=== PATIENT | female | born 1930 | race Caucasian/White ===

== ENCOUNTER 2016-10-03 09:07 | Outpatient (CLI) | payer MEDICARE, OTHER ==
[2015-11-10 07:46] VITALS: BP 175/88
== END 2016-10-03 09:10 ==
LOC: LAB 09:07
PROVIDERS: ATTEND Internal Medicine
DX: Z51.81 Encounter for therapeutic drug level monitoring (principal); Z79.01 Long term (current) use of anticoagulants
CPT/HCPCS: 36415; 85610

== ENCOUNTER 2017-01-01 12:36 | Outpatient (CLI) | payer MEDICARE, OTHER ==
[2015-11-10 07:46] VITALS: BP 175/88
== END 2017-01-01 12:37 ==
LOC: LAB 12:36
PROVIDERS: ATTEND Internal Medicine
DX: Z51.81 Encounter for therapeutic drug level monitoring (principal); Z79.01 Long term (current) use of anticoagulants
CPT/HCPCS: 36415; 85610

== ENCOUNTER 2017-03-20 08:57 | Outpatient (CLI) | payer MEDICARE, OTHER ==
[2015-11-10 07:46] VITALS: BP 175/88
== END 2017-03-20 09:00 ==
LOC: LAB 08:57
PROVIDERS: ATTEND Internal Medicine
DX: Z79.01 Long term (current) use of anticoagulants (principal)
CPT/HCPCS: 36415; 85610

== ENCOUNTER 2017-04-25 09:13 | Outpatient (CLI) | payer MEDICARE, OTHER ==
[2015-11-10 07:46] VITALS: BP 175/88
== END 2017-04-25 09:14 ==
LOC: LAB 09:13
PROVIDERS: ATTEND Internal Medicine
DX: Z79.01 Long term (current) use of anticoagulants (principal)
CPT/HCPCS: 36415; 85610

== ENCOUNTER 2017-05-08 13:33 | Outpatient (CLI) | payer MEDICARE, OTHER ==
[2015-11-10 07:46] VITALS: BP 175/88
== END 2017-05-08 13:34 ==
LOC: LAB 13:33
PROVIDERS: ATTEND Internal Medicine
DX: Z79.01 Long term (current) use of anticoagulants (principal)
CPT/HCPCS: 36415; 85610

== ENCOUNTER 2017-06-12 09:50 | Outpatient (CLI) | payer MEDICARE, OTHER ==
[2015-11-10 07:46] VITALS: BP 175/88
== END 2017-06-12 09:52 ==
LOC: LAB 09:50
PROVIDERS: ATTEND Internal Medicine
DX: Z79.01 Long term (current) use of anticoagulants (principal)
CPT/HCPCS: 36415; 85610

== ENCOUNTER 2017-07-05 11:05 | Outpatient (CLI) | payer MEDICARE, OTHER ==
[2015-11-10 07:46] VITALS: BP 175/88
[2017-07-05 11:34] LABS: APPEARANCE,URINE Clear (CLEAR); COLOR,URINE Yellow (YELLOW); OCCULT BLOOD,URINE Trace-intact (NEGATIVE); PH URINE 5.5 (5.0 - 8.0)
[2017-07-05 20:31] LABS: DIRECT BILIRUBIN 0.3 mg/dL (<0.4); TOTAL PROTEIN 7.4 g/dL (6.0-8.5)
== END 2017-07-05 11:06 ==
LOC: LAB 11:05
PROVIDERS: ATTEND Internal Medicine
DX: R79.89 Other specified abnormal findings of blood chemistry (principal); R39.9 Unspecified symptoms and signs involving the genitourinary system; Z79.01 Long term (current) use of anticoagulants
CPT/HCPCS: 36415; 80076; 81002; 84075; 84080; 85610

== ENCOUNTER 2017-08-07 10:32 | Outpatient (CLI) | payer MEDICARE, OTHER ==
[2015-11-10 07:46] VITALS: BP 175/88
== END 2017-08-07 10:33 ==
LOC: LAB 10:32
PROVIDERS: ATTEND Internal Medicine
DX: Z79.01 Long term (current) use of anticoagulants (principal)
CPT/HCPCS: 36415; 85610

== ENCOUNTER 2017-08-22 09:42 | Outpatient (CLI) | payer MEDICARE, OTHER ==
[2015-11-10 07:46] VITALS: BP 175/88
== END 2017-08-22 09:43 ==
LOC: LAB 09:42
PROVIDERS: ATTEND Internal Medicine
DX: Z79.01 Long term (current) use of anticoagulants (principal)
CPT/HCPCS: 36415; 85610

== ENCOUNTER 2018-05-22 13:08 | Outpatient (CLI) | payer MEDICARE, OTHER ==
[2015-11-10 07:46] VITALS: BP 175/88
[2018-05-22 13:53] LABS: eGFR (Non-African) > 60
== END 2018-05-22 13:10 ==
LOC: RAD 13:08
PROVIDERS: ATTEND Family Medicine
DX: I48.91 Unspecified atrial fibrillation (principal); M81.0 Age-related osteoporosis without current pathological fracture; I10 Essential (primary) hypertension
CPT/HCPCS: 36415; 77080; 80053; 85610

== ENCOUNTER 2019-02-11 16:12 | Outpatient (CLI) | payer OTHER ==
[2015-11-10 07:46] VITALS: BP 175/88
[2019-02-25 14:53] LABS: eGFR (Non-African) > 60
== END 2019-02-11 16:17 | disposition home or self-care (01) ==
LOC: LAB 16:12
PROVIDERS: ATTEND Family Medicine
DX: R41.3 Other amnesia (principal)
CPT/HCPCS: 36415; 80053

== ENCOUNTER 2019-08-07 09:38 | Outpatient (CLI) | payer OTHER ==
[2015-11-10 07:46] VITALS: BP 175/88
--- NOTE | 2019-08-07 11:20 | Diagnostic Imaging Report ---
PATIENT MR#: [id number] PATIENT PATIENT NAME: HELGA BHAT DATE OF : 1930 REFERRING PHYSICIAN: Víctor Xie EXAM DATE: 08/07/2019 ACCESSION NUMBER: [id number] EXAM DESCRIPTION: US U OR L EXT VEINS UNILAT Examination: Ultrasound vein bilaterally History: SWELLING RT LEG X WEEKS, SWELLING LEFT LEG X 1 DAY. Findings: Sonographic evaluation of the lower extremity venous system from the groin to the popliteal fossa inclusive bilaterally. Normal compressibility. No luminal filling defect. Normal waveforms and response to augm entation. No popliteal region fluid collection. Impression: No evidence for deep venous thrombosis. Read by: Dr. Justen Ricks Transcribed by: Transcribed Date: Electronically signed by: Dr. Jsuten Ricks Date signed: 08/07/2019 11:19:45 AM
== END 2019-08-07 09:48 ==
LOC: RAD 09:38
PROVIDERS: ATTEND Family Medicine
DX: M79.89 Other specified soft tissue disorders (principal)
CPT/HCPCS: 93970

== ENCOUNTER 2019-08-21 08:00 | Inpatient (IN) | payer OTHER ==
[2019-08-21] MEDS ORDERED: IPRATROPIUM/ALBUTEROL SULFATE 3 ML AMPUL.NEB NEB ONE ×2 (08:15→08:39)
--- NOTE | 2019-08-21 08:15 | ED Physician Documentation ---
General Adult - HISTORIAN Historian: patient - HPI Stated Complaint: shortness of breath Chief Complaint: Dyspnea Onset: days ago (2) Timing: still present Severity: mild Further Comments: yes (She reports an increased cough and congestion with shortness of air x 2 days. No fever. She has had a history of CHF) - ROS CONST: no problems EYES/ENT: nasal drainage, nasal congestion CVS/RESP: shortness of breath, cough - PAST HX Past History: A-Fib, CHF, hypertension Immunizations: UTD Allergies/Adverse Reactions: Allergies Allergy/AdvReac Type Severity Reaction Status Date / Time Sulfa (Sulfonamide Allergy Verified 08/21/19 08:22 Antibiotics) Home Medications: Ambulatory Orders Medication Instructions Recorded Citalopram Hydrobromide 10 mg PO QDAY 08/21/19 [Citalopram HBr] Memantine HCl 20 mg PO QDAY 08/21/19 Propranolol HCl [Propranolol HCl 160 mg PO BID 08/21/19 ER] - SOCIAL HX Smoking History: non-smoker Alcohol Use: none Drug Use: none - FAMILY HX Family History: No - VITAL SIGNS Vital Signs: Vital Signs Temp Pulse Resp BP Pulse Ox 175/88 11/10/15 07:57 - REVIEWED ASSESSMENTS Nursing Assessment Reviewed: Yes Vitals Reviewed: Yes Progress - Progress Progress: 0850: increased wheezing post neb DG 0915: Oxygen sat decreasing with sleep or rest. Dr Xie notified DG 0930: 4L to keep sat at 90% DG 0931: Dr Xie accepting inpt DG General Adult Physical Exam - PHYSICAL EXAM GENERAL APPEARANCE: no distress EENT: eye inspection normal, pharynx normal, no signs of dehydration NECK: normal inspection RESPIRATORY: no resp distress, chest non-tender, wheezes CVS: heart sounds normal, equal pulses, irregularly irregular rhy ABDOMEN: soft, normal bowel sounds, non-tender BACK: normal inspection SKIN: warm/dry EXTREMITIES: non-tender, normal range of motion, edema (right leg 2 + pitting left 1+ ) NEURO: oriented X3 Discharge Clincal Impression: Pneumonia Qualifiers: Pneumonia type: due to unspecified organism Laterality: left Lung location: lower lobe of lung Qualified Code(s): J18.9 - Pneumonia, unspecified organism Comments: Admit inpt acute Dr Xie accepting Condition: Fair Disposition: ADMITTED INPATIENT Decision to Admit: [id number] Date of Decison to Admit: 08/21/19 Decision Time: 09:32
[2019-08-21 08:21] LABS: BASOPHILS % 0.4 % (0.0-1.5); NEUTROPHILS # 7.5 # k/uL (1.4-7.7)
[2019-08-21 08:41] LABS: eGFR (Non-African) > 60
--- NOTE | 2019-08-21 08:58 | Diagnostic Imaging Report ---
PATIENT MR#: [id number] PATIENT PATIENT NAME: HELGA BHAT DATE OF : 1930 REFERRING PHYSICIAN: Karina Faye EXAM DATE: 08/21/2019 ACCESSION NUMBER: [id number] EXAM DESCRIPTION: CHEST 1VIEW Examination: Portable chest History: Evaluate lungs. SOB Comparison exam: None provided. Findings: Single view of the chest demonstrates a prominent cardiac silhouette. Tortuous aorta with v ascular calcifications. Diffuse interstitial markings. Blunting of the lung bases bilaterally. Osseous struct ures appropriate for age. Impression: Diffuse interstitial prominence - chronicity indeterminate without older exams. Read by: Dr. Justen Ricks Transcribed by: Transcribed Date: Electronically signed by: Dr. Justen Ricks Date signed: 08/21/2019 8:58:06 AM
[2019-08-21] MEDS ORDERED: FUROSEMIDE 20 MG/2 ML VIAL IVP ONE (09:07)
[2019-08-21] MEDS: BUDESONIDE 0.5MG/2ML AMPUL.NEB NEB SCH ×3 (09:14→20:28)
[2019-08-21] MEDS ORDERED: cefTRIAXone SODIUM 1 GM in 0.9 % SODIUM CHLORIDE 50 ML IV ONE (09:31)
[2019-08-21 11:13] VITALS: BMI 24.0
[2019-08-21] MEDS ORDERED: 0.9 % SODIUM CHLORIDE 1,000 ML IV SCH (12:15)
--- NOTE | 2019-08-21 13:20 | History and Physical Report ---
History of Present Illnes - History of Present Illness Reason for Visit: dyspnea History of Present Illness: 89yo white female who developed some shortness of breath. Having some dyspnea on exertion. Has had some rattling in her chest. She has had some cough but has been nonproductive in nature. No fever noted, she has had some mild chills. Has felt weak. 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 Gastrointestinal: Constipation Heme/Onc: denies: Anemia NOS Psych: denies: Anxiety, Depression Endocrine: denies: Diabetes, Hyperthyroidism - Past Surgical History Past Surgical History: Hysterectomy - Past Family History Mother Family History: (81 yo advanced age) Father Family History: (84yo - advance age) - Past Social History Smoke: No Alcohol: None Drugs: None Lives: Alone - Health Maintenance Health Maintenance: Influenza Vaccine, Pneumococcal Vaccine Influenza Vaccine: Current for this Influenza Season Pneumonia Vaccine: Yes Resuscitation Status: Resusciation Status Resuscitation Status Full Code - Unable to Obtain History Unable to Obtain: No Review of Systems - Review of Systems Constitutional: Chills, Weakness. negative: Fever, Sweats Eyes: negative: pain, vision change ENT: negative: Ear Pain, Ear Discharge, Nose Pain, Nose Discharge, Nose Conge stion, Throat Pain Respiratory: negative: Cough, Dry, Shortness of Breath Cardiovascular: negative: Chest Pain Gastrointestinal: Constipation. negative: Nausea, Vomiting, Abdominal Pain, Diarrhea, Melena, Hematochezia Genitourinary: negative: Dysuria, Frequency, Incontinence, Hematuria, Retention Musculoskeletal: Back Pain. negative: Neck Pain Skin: negative: Rash, Lesions Neurological: Weakness (generalized). negative: Numbness, Incoordination, Change in Speech, Confusion, Seizures - Medications/Allergies Allergies/Adverse Reactions: Allergies Allergy/AdvReac Type Severity Reaction Status Date / Time Sulfa (Sulfonamide Allergy Verified 08/21/19 08:22 Antibiotics) Home Medications: Home Medications Citalopram Hydrobromide [Citalopram HBr] 10 mg PO QDAY 08/21/19 Memantine HCl 20 mg PO QDAY 08/21/19 Propranolol HCl [Propranolol HCl ER] 160 mg PO BID 08/21/19 Current Inpatient Medications: Current Inpatient Medications Albuterol/Ipratropium (Duoneb) 3 ml NEB Q4 SAGE Stop: 09/20/19 12:59 Amlodipine Besylate (Norvasc) 5 mg PO DAILY SAGE Stop: 09/21/19 08:59 Budesonide (Pulmicort) 0.5 mg NEB BID SAGE Stop: 09/20/19 09:59 Last Admin: 08/21/19 10:01 Dose: Not Given Furosemide (Lasix) 20 mg IVP QDAY SAGE Stop: 09/21/19 08:59 Sodium Chloride (Normal Saline) 1,000 mls @ 100 mls/hr IV Q10H SAGE Stop: 09/20/19 12:14 Azithromycin 500 mg/ Sodium (Chloride) 250 mls @ 250 mls/hr IV Q24H [facility]AGE Stop: 08/25/19 13:59 Ceftriaxone Sodium 1 gm/ (Sodium Chloride) 50 mls @ 100 mls/hr IV DAILY SAGE Stop: 09/21/19 08:59 Memantine (Namenda) 20 mg PO QDAY SAGE Stop: 09/21/19 08:59 Methylprednisolone Sodium Succinate (Solu-Medrol) 60 mg IVP Q12 SAGE Stop: 09/20/19 12:59 Propranolol HCl (Inderal) 80 mg PO DAILY SAGE Stop: 09/21/19 08:59 Rivaroxaban (Xarelto) 20 mg PO 1800 [facility] Stop: 09/20/19 17:59 Exam - Exam Vital Signs: Vital Signs (72 hours) 08/21/19 08/21/19 08/21/19 08:10 08:15 09:15 Temperature 98.1 F Pulse Rate 108 H 86 Pulse Rate [ Left] Pulse Rate [ 108 H Pulse ox] Respiratory 26 H Rate Blood Pressure 167/100 [Left Arm] O2 Sat by Pulse 89 L Oximetry 08/21/19 08/21/19 08/21/19 09:46 09:57 10:00 Temperature 98.3 F 98.6 F Pulse Rate 82 Pulse Rate [ 87 Left] Pulse Rate [ 78 78 Pulse ox] Respiratory 27 H 18 Rate Blood Pressure 170/89 158/98 [Left Arm] O2 Sat by Pulse 91 L 96 Oximetry 08/21/19 08/21/19 11:07 12:08 Temperature 98.6 F Pulse Rate 93 H Pulse Rate [ 87 Left] Pulse Rate [ Pulse ox] Respiratory 18 Rate Blood Pressure 158/98 [Left Arm] O2 Sat by Pulse 94 94 Oximetry General: Alert, Oriented to Person, Cooperative, Mild distress HEENT: Atraumatic Neck: Normal Range of Motion. No: Stridor, Rigidity, Lymphadenopathy Carotids: WNL Thyroid: WNL Lungs: Normal air movement, Speaks full Sentences, Rales, Rhonchi Cardiovascular: Regular rate, Normal S1, Normal S2, No murmurs. No: Gallops, Rubs Abdomen: Normal bowel sounds, Soft, No tenderness, No hepatospenomegaly Integumentary: Normal, [place], Warm, Dry Extremities: No clubbing, No cyanosis, Other (edema RLE 2/4, LLE 1/4) Neurological: Normal gait, Normal speech, Strength Equal Bilat, Normal tone, Sensation intact, Cranial nerves 3-12 NL Psych/Mental Status: Mood NL, Appropriate Affect. No: Mental status NL, Intact Judgment - Laboratory Results Laboratory Results: Laboratory Results 08/21/19 08/21/19 08/21/19 08:15 08:15 09:30 WBC 9.80 RBC 4.13 Hgb 12.6 Hct 38.6 MCV 94.0 MCH 30.6 MCHC 32.7 RDW 13.1 Plt Count 215 Neut % (Auto) 76.0 Lymph % (Auto) 11.9 L [place] % (Auto) 10.1 Eos % (Auto) 1.6 Baso % (Auto) 0.4 Neut # (Auto) 7.5 Lymph # (Auto) 1.2 [place] # (Auto) 1.0 H Eos # (Auto) 0.2 Baso # (Auto) 0.0 Sodium 141 Potassium 4.0 Chloride 102 Carbon Dioxide 32 H Anion Gap 11.0 BUN 27 H Creatinine 0.73 Estimated Creat Clear 65 Est GFR ( Amer) > 60 Est GFR (Non-Af Amer) > 60 Glucose 110 H Lactate 1.0 Calcium 9.6 Total Bilirubin 1.9 H AST 53 H ALT 18 Alkaline Phosphatase 189 H Troponin I < 0.012 L NT-Pro-B Natriuret Pep 2873.4 H Total Protein 7.6 Albumin 4.3 Assessment/Plan - Assessment/Plan (1) Pneumonia Status: Acute Current Visit: Yes Qualifiers: Pneumonia type: due to unspecified organism Laterality: bilateral Lung location: lower lobe of lung Qualified Code(s): J18.9 - Pneumonia, unspecified organism Plan: Chest x-ray shows some diffuse interstitial disease and mild bilat pleural effusions. Questionable infiltrate to the right lower lung. Blood cultures drawn, will start solumedrol, azithromycin and rocephin. Patient on duoneb treatments (2) Atrial fibrillation Status: Chronic Current Visit: Yes Qualifiers: Atrial fibrillation type: longstanding persistent Qualified Code(s): I48.11 - Longstanding persistent atrial fibrillation Assessment: on Eliquis (3) Dementia Status: Chronic Current Visit: Yes Qualifiers: Dementia type: Alzheimer's disease Assessment: stable VTE Assessment - RISK FACTOR SCORE VTE RISK FACTOR SCORES: AGE OVER 60 YEARS, ACUTE INFECTION OTHER THEN SEPSIS, ANTICIPATED BED CONFINEMENT OR IMMOBILIZATION > 24 HOURS - RISK VTE HIGH RISK: SCORE OF 3-4 (RISK PROXIMAL DVT 4-8%) PROPHYLAXIS NEEDED (on Eliquis)
[2019-08-21] MEDS: methylPREDNISolone SOD SUCC 40 MG/ML VIAL IVP SCH ×2 (13:37→20:21)
[2019-08-21] MEDS: AZITHROMYCIN 500 MG in 0.9 % SODIUM CHLORIDE 250 ML IV SCH (13:40)
[2019-08-21] MEDS: IPRATROPIUM/ALBUTEROL SULFATE 3 ML AMPUL.NEB NEB SCH ×4 (13:43→20:30)
[2019-08-21 13:44] LABS: APPEARANCE,URINE CLEAR (CLEAR); COLOR,URINE YELLOW (YELLOW); OCCULT BLOOD,URINE 1+ (NEGATIVE)
[2019-08-21] MEDS: FUROSEMIDE 40 MG/4 ML VIAL IVP SCH (15:36)
--- NOTE | 2019-08-21 17:04 | Diagnostic Imaging Report ---
PATIENT MR#: [id number] PATIENT PATIENT NAME: HELGA BHAT DATE OF : 1930 REFERRING PHYSICIAN: Víctor Xie EXAM DATE: 08/21/2019 ACCESSION NUMBER: [id number] EXAM DESCRIPTION: CT PE CHEST Exam: CT chest with contrast. History: Dyspnea. Elevated D-dimer. Axial images through the thorax after IV infusion of 90 cc Omnipaque 350 is submitted along with sagi ttal and coronal reformatted images. Bilateral pleural effusions are identified. Compressive atelectasis in the right lower lobe is noted . Patchy infiltrates in the middle lobe and lingula are noted. The thoracic aorta and mainstem pulmonary gael ry are of normal caliber. Lymphadenopathy in the aortopulmonary window is noted. The thoracic aorta and mainstem pul monary artery are normal caliber. No intrinsic filling defects in the pulmonary arteries are identified. Bilateral at rial enlargement is identified. A left renal cyst in the upper pole is identified. No other abnormality in the upper abdomen is note d. Impression: Bilateral pleural effusions with compressive atelectasis in the right lower lobe and patchy infiltrat es in the middle lobe and lingula. Lymphadenopathy in the aortopulmonary window is noted. No intrinsic filling defects in the pulmonary arteries are identified. Bilateral atrial enlargement is noted. Read by: Dr. Luke Figueroa Transcribed by: Transcribed Date: Electronically signed by: Dr. Luke Figueroa Date signed: 08/21/2019 5:04:07 PM
[2019-08-21] MEDS: RIVAROXABAN 10 MG TABLET PO SCH (17:31)
[2019-08-22] MEDS: IPRATROPIUM/ALBUTEROL SULFATE 3 ML AMPUL.NEB NEB SCH ×6 (00:11→22:50)
[2019-08-22] MEDS: FUROSEMIDE 40 MG/4 ML VIAL IVP SCH (06:16)
[2019-08-22 06:43] LABS: BASOPHILS % 0.6 % (0.0-1.5)
[2019-08-22 06:44] LABS: NEUTROPHILS # 10.6 # k/uL (1.4-7.7); eGFR (Non-African) > 60
[2019-08-22] MEDS: PROPRANOLOL HCL 20 MG TABLET PO SCH (08:09)
[2019-08-22] MEDS: amLODIPine BESYLATE 5 MG TABLET PO SCH (08:09)
[2019-08-22] MEDS: MEMANTINE HCL 10 MG TABLET PO SCH (08:09)
[2019-08-22] MEDS: methylPREDNISolone SOD SUCC 40 MG/ML VIAL IVP SCH ×2 (08:11→22:50)
[2019-08-22] MEDS: cefTRIAXone SODIUM 1 GM in 0.9 % SODIUM CHLORIDE 50 ML IV SCH (08:15)
[2019-08-22] MEDS: BUDESONIDE 0.5MG/2ML AMPUL.NEB NEB SCH ×2 (08:27→22:49)
--- NOTE | 2019-08-22 08:51 | Inpatient Progress Note ---
Subjective - Required Recertification Statement I anticipate X number of days because-include discharge plan: 1 day - Review of Systems Events since last encounter: Patient seems to be doing better today. Denies any SOB. She has a mild cough. Mental status seems improved some. Yesterday develop an acute episode of hypoxemia and had to have oxygen with a non-rebreather mask for a short period of time. General: Denies: Chills, Night Sweats Pulmonary: Dyspnea, Cough. Denies: Pleuritic Chest Pain Cardiovascular: Denies: Chest Pain, Palpitations, Orthopnea, Paroxysmal Noc. Dyspnea, Light Headedness Gastrointestinal: Denies: Nausea, Vomiting, Abdominal Pain, Diarrhea Objective - Exam Vitals and I&O: Vital Signs Temp 98.7 F 08/22/19 05:53 Pulse 74 08/22/19 05:53 Resp 20 08/22/19 05:53 BP 152/85 08/22/19 05:53 Pulse Ox 94 08/22/19 05:53 Intake & Output 08/21/19 08/21/19 08/22/19 11:59 23:59 11:59 Intake Total 20 672 650 Output Total 800 1750 1725 Balance -795 -8472 -1074 Weight 69.717 kg Intake: IV 20 12 70 Right Antecubital 20 12 70 Oral 660 580 Output: Urine 800 1750 1725 Other: Voiding Method Toilet Toilet Toilet # Bowel Movements 1 0 General: Alert, Oriented to Person, Oriented to Place, Oriented to Time, Cooperative, No acute distress Neck: Supple, No JVD Lungs: Normal air movement, Speaks full Sentences, Rales (in bases bilat), Rhonchi (few scattered) Cardiovascular: Regular rate, Normal S1, Normal S2, No murmurs Abdomen: Normal bowel sounds, Soft, No tenderness, No hepatospenomegaly Skin: Normal, [place], Warm, Dry Neurological: Normal gait, Normal speech Psych/Mental Status: Mental status NL (at baseline), Mood NL, Appropriate Affect. No: Intact Judgment - Results Results: Laboratory Results WBC 11.50 K/ul (4.00-12.00) 08/22/19 05:15 RBC 4.05 M/ul (3.90-5.20) 08/22/19 05:15 Hgb 12.3 g/dL (11.5-16.0) 08/22/19 05:15 Hct 36.5 % (34.5-46.5) 08/22/19 05:15 MCV 90.0 fl (80.0-100.0) 08/22/19 05:15 MCH 30.4 pg (28.0-34.0) 08/22/19 05:15 MCHC 33.7 g/dL (30.0-36.0) 08/22/19 05:15 RDW 13.0 % (11.3-14.3) 08/22/19 05:15 Plt Count 193 K/mm3 (130-400) 08/22/19 05:15 Neut % (Auto) 92.1 % (39.0-79.0) H 08/22/19 05:15 Lymph % (Auto) 4.7 % (16.0-50.0) L 08/22/19 05:15 [place] % (Auto) 1.5 % (0.0-11.0) 08/22/19 05:15 Eos % (Auto) 1.1 % (0.0-6.8) 08/22/19 05:15 Baso % (Auto) 0.6 % (0.0-1.5) 08/22/19 05:15 Neut # (Auto) 10.6 # k/uL (1.4-7.7) H 08/22/19 05:15 Lymph # (Auto) 0.5 # k/uL (0.6-4.0) L 08/22/19 05:15 [place] # (Auto) 0.2 # k/uL (0.0-0.9) 08/22/19 05:15 Eos # (Auto) 0.1 # k/uL (0.0-0.6) 08/22/19 05:15 Baso # (Auto) 0.1 # k/uL (0.0-0.5) 08/22/19 05:15 D-Dimer 962 ng/mL (6.0-682) H 08/21/19 14:54 Sodium 140 mmol/L (137-145) 08/22/19 05:15 Potassium 3.4 mmol/L (3.5-5.1) L 08/22/19 05:15 Chloride 96 mmol/L (98-107) L 08/22/19 05:15 Carbon Dioxide 32 mmol/L (22-30) H 08/22/19 05:15 Anion Gap 15.4 08/22/19 05:15 BUN 26 mg/dL (7-17) H 08/22/19 05:15 Creatinine 0.85 mg/dL (0.52-1.04) 08/22/19 05:15 Estimated Creat Clear 60 08/22/19 05:15 Est GFR ( Amer) > 60 (60-) 08/22/19 05:15 Est GFR (Non-Af Amer) > 60 (60-) 08/22/19 05:15 Glucose 162 mg/dL (74-106) H 08/22/19 05:15 Lactate 1.0 U/L (0.7-2.1) 08/21/19 09:30 Calcium 9.9 mg/dL (8.4-10.2) 08/22/19 05:15 Total Bilirubin 1.9 mg/dL (0.2-1.3) H 08/22/19 05:15 AST 32 U/L (15-46) 08/22/19 05:15 ALT 17 U/L (4-35) 08/22/19 05:15 Alkaline Phosphatase 175 U/L (38-126) H 08/22/19 05:15 Troponin I < 0.012 ng/mL (0.012-0.034) L 08/21/19 08:15 NT-Pro-B Natriuret Pep 2873.4 pg/mL (15.0-450.0) H 08/21/19 08:15 Total Protein 8.0 g/dL (6.3-8.2) 08/22/19 05:15 Albumin 4.4 g/dL (3.5-5.0) 08/22/19 05:15 Urine Color Yellow (YELLOW) 08/21/19 09:55 Urine Appearance Clear (CLEAR) 08/21/19 09:55 Urine pH 5.0 (5.0 - 8.0) 08/21/19 09:55 Ur Specific [place] 1.025 (1.010-1.030) 08/21/19 09:55 Urine Protein Negative mg/dL (NEGATIVE) 08/21/19 09:55 Urine Ketones Negative mg/dL (NEGATIVE) 08/21/19 09:55 Urine Occult Blood 1+ (NEGATIVE) H 08/21/19 09:55 Urine Nitrite Positive (NEGATIVE) H 08/21/19 09:55 Urine Bilirubin Negative (NEGATIVE) 08/21/19 09:55 Urine Urobilinogen 1.0 Eu (0.2-1.0) 08/21/19 09:55 Ur Leukocyte Esterase Negative (NEGATIVE) 08/21/19 09:55 Urine Glucose Negative mg/dL (NEGATIVE) 08/21/19 09:55 Assessment/Plan - Assessment/Plan (1) Pneumonia Status: Acute Current Visit: Yes Qualifiers: Pneumonia type: due to unspecified organism Laterality: bilateral Lung location: lower lobe of lung Qualified Code(s): J18.9 - Pneumonia, unspecified organism Assessment: blood cultures pending. Will continue with present treatment (2) Atrial fibrillation Status: Chronic Current Visit: Yes Qualifiers: Atrial fibrillation type: longstanding persistent Qualified Code(s): I48.11 - Longstanding persistent atrial fibrillation Assessment: stable, no tachy or bradycardia noted (3) Dementia Status: Chronic Current Visit: Yes Qualifiers: Dementia type: Alzheimer's disease Assessment: mental status appears improved and back to baseline
[2019-08-22] MEDS ORDERED: FUROSEMIDE 20 MG/2 ML VIAL IVP SCH (09:00)
[2019-08-22] MEDS: AZITHROMYCIN 500 MG in 0.9 % SODIUM CHLORIDE 250 ML IV SCH (12:29)
[2019-08-22] MEDS: RIVAROXABAN 10 MG TABLET PO SCH (17:47)
[2019-08-23] MEDS: IPRATROPIUM/ALBUTEROL SULFATE 3 ML AMPUL.NEB NEB SCH ×3 (04:00→09:25)
--- NOTE | 2019-08-23 08:17 | Diagnostic Imaging Report ---
PATIENT MR#: [id number] PATIENT PATIENT NAME: HELGA BHAT DATE OF : 1930 REFERRING PHYSICIAN: Víctor Xie EXAM DATE: 08/23/2019 ACCESSION NUMBER: [id number] EXAM DESCRIPTION: CHEST 2VIEW Chest, PA and lateral History: Dyspnea Findings: The lungs are hyper-inflated and there is flattening of the diaphragms, consistent with emp hysema. Small bilateral pleural effusions are present. There is no pneumothorax. Heart size and pulmonary vasculari ty are normal. since August 21 2019, interstitial prominence has decreased. Impression: Small bilateral pleural effusions. Read by: Dr. David Lemons Transcribed by: Transcribed Date: Electronically signed by: Dr. David Lemons Date signed: 08/23/2019 8:17:23 AM
[2019-08-23 08:49] LABS: eGFR (Non-African) > 60
[2019-08-23] MEDS ORDERED: FUROSEMIDE 40 MG/4 ML VIAL IVP SCH (09:00)
--- NOTE | 2019-08-23 09:08 | Discharge Summary ---
Discharge Summary - Discharge [facility] Admission Date: 08/21/19 (Acute) Discharge Date: 08/23/19 (Home) Discharge To: Home History of Present Illness: 89yo white female who developed some shortness of breath over the last 3-4 days. Having some dyspnea on exertion. Has had some rattling in her chest. She has had some cough but has been nonproductive in nature. No fever noted, she has had some mild chills. Has felt weak. Patient was seen in clinic and was noted to have a SAo2 87% on RA. She was felt that she might be deveoping some pneumonia and admitted to the hospital for further evaluation and treatment. Condition at Discharge: Stable Home Medications: Ambulatory Orders Medication Instructions Recorded Citalopram Hydrobromide 10 mg PO QDAY 08/21/19 [Citalopram HBr] Memantine HCl 20 mg PO QDAY 08/21/19 Propranolol HCl [Propranolol HCl 160 mg PO BID 08/21/19 ER] Azithromycin 250 mg PO DAILY #4 tablet 08/23/19 Budesonide [Pulmicort] 0.5 mg NEB BID ampul.neb 08/23/19 Cefdinir [Omnicef] 300 mg PO QID #28 capsule 08/23/19 Consultations this Visit: None Procedures this Visit: None Allergies/Adverse Reactions: Allergies Allergy/AdvReac Type Severity Reaction Status Date / Time Sulfa (Sulfonamide Allergy Verified 08/21/19 08:22 Antibiotics) Discharge Summary: Patient was started on IV azithromycin and Rocephin. Patient is on hypo nebulization treatments duoneb. Patient was given supplemental oxygen in order to keep her SaO2 greater than 90%. Patient did well progressed well. At the time of dismissal patient was able to maintain her SaO2 greater than 92% on room air. Patient was ambulating without any further dyspnea or shortness of breath. Patient did not have any chest pain or chest pressure patient dementia remain stable without any behavioral issues. Atrial fibrillation stable without any tachycardia bradycardia. At the time to discharge it was felt that the patient could be managed an outpatient setting and with discharged in stable condition. - Final Diagnosis (1) Pneumonia Problems: improved (2) Atrial fibrillation Problems: improved (3) Dementia Problems: stable
[2019-08-23] MEDS: MEMANTINE HCL 10 MG TABLET PO SCH (09:20)
[2019-08-23] MEDS: PROPRANOLOL HCL 20 MG TABLET PO SCH (09:21)
[2019-08-23] MEDS: amLODIPine BESYLATE 5 MG TABLET PO SCH (09:22)
[2019-08-23 09:25] LABS: BASOPHILS % 0.6 % (0.0-1.5); NEUTROPHILS # 17.7 # k/uL (1.4-7.7); SEGMENTED NEUTROPHILS % 84 % (39-79)
[2019-08-23] MEDS: BUDESONIDE 0.5MG/2ML AMPUL.NEB NEB SCH (09:27)
[2019-08-23] MEDS: cefTRIAXone SODIUM 1 GM in 0.9 % SODIUM CHLORIDE 50 ML IV SCH (09:27)
[2019-08-23] MEDS: methylPREDNISolone SOD SUCC 40 MG/ML VIAL IVP SCH (09:32)
[2019-08-23 09:34] VITALS: BP 166/89
[2019-08-23] MEDS ORDERED: SOUTH LOCK-UP KEY 1 EACH EACH MC ONE ×2 (10:29→10:32)
== END 2019-08-23 10:40 | disposition home or self-care (01) | DRG 194 ==
LOC: ED 08:00 → SOUTH 09:33
PROVIDERS: ADMIT Family Medicine; ATTEND Family Medicine
DX: J18.9 Pneumonia, unspecified organism (principal); I48.11 Longstanding persistent atrial fibrillation; G30.9 Alzheimer's disease, unspecified; F02.80 Dementia in other diseases classified elsewhere, unspecified severity, without behavioral disturbance, psychotic disturbance, mood disturbance, and anxiety; I11.0 Hypertensive heart disease with heart failure; I50.9 Heart failure, unspecified; Z88.2 Allergy status to sulfonamides; Z79.899 Other long term (current) drug therapy; Z90.710 Acquired absence of both cervix and uterus; Z79.51 Long term (current) use of inhaled steroids; Z79.01 Long term (current) use of anticoagulants
CPT/HCPCS: 71275; 80048; 80053; 81002; 83605; 83880; 84484; 85025; 85379; 87040; 87086; 87186; 93005; 94640; 96361; 96374; 99231; 99238; 99284; J0456; J0696; J1940; J2920; J7050; J7626; J1030; J7030; Q9967; S1016

== ENCOUNTER 2019-09-12 04:29 | Inpatient (IN) | payer OTHER ==
--- NOTE | 2019-09-12 04:52 | ED Physician Documentation ---
General Adult - HISTORIAN Historian: patient - HPI Stated Complaint: Chest tightness after waking with a vision of something in room Chief Complaint: General Adult Onset: other (two weeks or more increasing ) Timing: better Severity: mild Further Comments: yes (She states she was told she had a tightness in her chest by her PCP due to tight bras - she states she changed her bras and she has no improvement. She was in the hospital at the end of Aug with pneumonia and she reports she did feel better post treatment. She denies a fever. She has increased shortness of air with movement.) - ROS CONST: recent illness MS/SKIN/LYMPH: none NEURO/PSYCH: denies: headache - PAST HX Past History: hypertension Immunizations: UTD Allergies/Adverse Reactions: Allergies Allergy/AdvReac Type Severity Reaction Status Date / Time Sulfa (Sulfonamide Allergy Verified 09/12/19 04:57 Antibiotics) Home Medications: Ambulatory Orders Medication Instructions Recorded Citalopram Hydrobromide 10 mg PO QDAY 08/21/19 [Citalopram HBr] Memantine HCl 20 mg PO QDAY 08/21/19 Propranolol HCl [Propranolol HCl 160 mg PO BID 08/21/19 ER] Budesonide [Pulmicort] 0.5 mg NEB BID ampul.neb 08/23/19 - SOCIAL HX Smoking History: non-smoker Alcohol Use: none Drug Use: none - FAMILY HX Family History: No - VITAL SIGNS Vital Signs: Vital Signs Temp Pulse Resp BP Pulse Ox 98.8 F 73 18 165/83 95 09/12/19 04:38 09/12/19 04:38 09/12/19 04:38 09/12/19 04:38 09/12/19 04:38 - REVIEWED ASSESSMENTS Nursing Assessment Reviewed: Yes Vitals Reviewed: Yes Progress - Progress Progress: 0610: discussed results with Dr Xie he is agreeable to admission acute DG General Adult Physical Exam - PHYSICAL EXAM GENERAL APPEARANCE: no distress EENT: eye inspection normal, pharynx normal, no signs of dehydration NECK: normal inspection RESPIRATORY: rhonchi (RUL and RLL ) CVS: reg rate & rhythm, heart sounds normal ABDOMEN: soft, no distension BACK: normal inspection SKIN: warm/dry EXTREMITIES: non-tender, edema (bilateral lower non pitting ) NEURO: oriented X3 Discharge Clincal Impression: Pneumonia Qualifiers: Pneumonia type: due to unspecified organism Laterality: bilateral Lung location: unspecified part of lung Qualified Code(s): J18.9 - Pneumonia, unspecified organism Referrals: Víctor Xie MD [Primary Care Provider] - 2 Days Disposition: 09 ADMITTED INPATIENT Decision to Admit: [id number] Date of Decison to Admit: 09/12/19 Decision Time: 06:14
[2019-09-12] MEDS ORDERED: IPRATROPIUM/ALBUTEROL SULFATE 3 ML AMPUL.NEB NEB ONE (05:02)
--- NOTE | 2019-09-12 05:39 | Diagnostic Imaging Report ---
PATIENT MR#: [id number] PATIENT PATIENT NAME: HELGA BHAT DATE OF : 1930 REFERRING PHYSICIAN: Karina Faye EXAM DATE: 09/12/2019 ACCESSION NUMBER: [id number] EXAM DESCRIPTION: CHEST 2VIEW PA and lateral chest History: Short of breath PA and lateral chest dated September 12, 2019 is compared with August 23, 2019. Small bilateral pleural effusions are present, unchanged. Heart size is unchanged. Pulmonary vascul arity is normal. There is no new focus of infiltrate. Impression: Small bilateral pleural effusions, unchanged. Overall, no change compared with August 23, 2019. Read by: Dr. Melinda Gatica Transcribed by: Transcribed Date: Electronically signed by: Dr. Melinda Gatica Date signed: 09/12/2019 5:38:35 AM
[2019-09-12] MEDS ORDERED: 0.9 % SODIUM CHLORIDE 1,000 ML IV ONE (06:13)
[2019-09-12] MEDS ORDERED: FUROSEMIDE 20 MG/2 ML VIAL IVP ONE (06:14)
[2019-09-12 07:00] LABS: BASOPHILS % 0.4 % (0.0-1.5); NEUTROPHILS # 4.2 # k/uL (1.4-7.7); eGFR (Non-African) > 60
[2019-09-12] MEDS: IPRATROPIUM/ALBUTEROL SULFATE 3 ML AMPUL.NEB NEB SCH ×5 (09:10→20:03)
[2019-09-12] MEDS: PROPRANOLOL HCL 20 MG TABLET PO SCH (09:17)
[2019-09-12] MEDS: SODIUM CHLORIDE 0.9 % (FLUSH) 10 ML DISP.SYRIN IV SCH ×2 (09:17→20:04)
[2019-09-12] MEDS: amLODIPine BESYLATE 5 MG TABLET PO SCH (09:17)
[2019-09-12] MEDS: MEMANTINE HCL 10 MG TABLET PO SCH (09:17)
[2019-09-12] MEDS: BUDESONIDE 0.5MG/2ML AMPUL.NEB NEB SCH ×2 (09:24→20:04)
[2019-09-12 09:42] VITALS: BMI 23.1
--- NOTE | 2019-09-12 16:28 | History and Physical Report ---
History of Present Illnes - History of Present Illness Reason for Visit: Dyspnea History of Present Illness: 89-year-old white female who is really admitted the hospital for its pneumonia. Patient was treated with azithromycin and Rocephin. Patient with him. At the time to discharge and did well until several days prior to admission. At that time patient started having some increasing shortness of breath dyspnea once again. Patient stated she is had a nonproductive cough. Patient denied any fever or chills. Patient subsequently came back to the ED for evaluation. In the emergency room patient was found to have a pulse ox of 87% on room air. Patient chest x-ray showed some continuing infiltrate and she was subsequently admitted to the hospital for further care and evaluation. Patient has been having some memory/dementia issues. Patient states that when she woke up on the day of admission she that there is a man standing over her. Initially she thought it was her who is been for a number of years. Patient has been having some episodes of mental confusion sometimes associated with some hallucinations. Patient has been started on Namenda for her memory issues. The family has some questions about whether the appropriate for the patient to remain at home living by herself. There is some questions about whether the patient and her medications appropriately. - Past Medical History Cardiac: AFIB, CHF, HTN [employer]PUT[employer] J[employer]ER: Dementia Gastrointestinal: Constipation - Past Surgical History Past Surgical History: Hysterectomy - Past Family History Mother Family History: (81 yo advanced age) Father Family History: (84yo - advance age) - Past Social History Smoke: No Alcohol: None Drugs: None Lives: Alone - Health Maintenance Health Maintenance: Influenza Vaccine, Pneumococcal Vaccine Pneumonia Vaccine: Yes Resuscitation Status: Resusciation Status Resuscitation Status Full Code - Unable to Obtain History Unable to Obtain: No Review of Systems - Review of Systems Constitutional: Weakness. negative: Fever, Chills Eyes: negative: pain ENT: negative: Ear Pain, Ear Discharge, Nose Pain, Nose Congestion, Mouth Swelling, Throat Swelling Respiratory: Cough, Dry, Shortness of Breath, SOB with Excertion. negative: Hemoptysis, Pleuritic Pain Cardiovascular: negative: Chest Pain, Palpitations, Paroxysmal Noc. Dyspnea, Light Headedness Gastrointestinal: negative: Nausea, Vomiting, Abdominal Pain, Diarrhea, Constipation, Melena, Hematochezia Genitourinary: negative: Dysuria, Frequency, Incontinence Musculoskeletal: negative: Neck Pain, Shoulder Pain, Arm Pain Skin: negative: Rash Neurological: Confusion. negative: Weakness, Numbness, Change in Speech, Seizures - Medications/Allergies Allergies/Adverse Reactions: Allergies Allergy/AdvReac Type Severity Reaction Status Date / Time Sulfa (Sulfonamide Allergy Verified 09/12/19 04:57 Antibiotics) Current Inpatient Medications: Current Inpatient Medications Albuterol/Ipratropium (Duoneb) 3 ml NEB Q4 SAGE Stop: 10/12/19 06:59 Last Admin: 09/12/19 12:55 Dose: 3 ml Amlodipine Besylate (Norvasc) 5 mg PO DAILY SAGE Stop: 10/12/19 08:59 Last Admin: 09/12/19 09:17 Dose: 5 mg Budesonide (Pulmicort) 0.5 mg NEB BID SAGE Stop: 10/12/19 08:59 Last Admin: 09/12/19 09:24 Dose: 0.5 mg Furosemide (Lasix) 20 mg IVP QDAY SAGE Stop: 10/13/19 08:59 Levofloxacin (Levaquin) 100 mls @ 100 mls/hr IV Q24H SAGE Stop: 09/26/19 06:59 Last Admin: 09/12/19 09:09 Dose: Not Given Memantine (Namenda) 20 mg PO QDAY SAGE Stop: 10/12/19 08:59 Last Admin: 09/12/19 09:17 Dose: 20 mg Propranolol HCl (Inderal) 20 mg PO DAILY SAGE Stop: 10/12/19 08:59 Last Admin: 09/12/19 09:17 Dose: 20 mg Rivaroxaban (Xarelto) 20 mg PO 1800 SAGE Stop: 10/12/19 17:59 Exam - Exam Vital Signs: Vital Signs (72 hours) 09/12/19 09/12/19 09/12/19 04:38 05:00 06:00 Temperature 98.8 F Pulse Rate 73 77 Pulse Rate [ 73 Right Pulse ox] Respiratory 18 Rate Blood Pressure 165/83 [Left Arm] Blood Pressure [Right Arm] O2 Sat by Pulse 95 Oximetry 09/12/19 09/12/19 09/12/19 06:49 07:00 07:33 Temperature 97.0 F L Pulse Rate 82 Pulse Rate [ 82 83 Right Pulse ox] Respiratory 20 18 Rate Blood Pressure 157/86 [Left Arm] Blood Pressure 174/77 [Right Arm] O2 Sat by Pulse 98 95 Oximetry 09/12/19 09/12/19 09/12/19 09:36 09:38 10:00 Temperature 97.0 F L 97.0 F L Pulse Rate 86 Pulse Rate [ 83 83 Right Pulse ox] Respiratory 18 18 Rate Blood Pressure 157/86 157/86 [Left Arm] Blood Pressure [Right Arm] O2 Sat by Pulse 95 95 95 Oximetry 09/12/19 09/12/19 13:18 13:49 Temperature 97.3 F L Pulse Rate 82 Pulse Rate [ 80 Right Pulse ox] Respiratory 18 Rate Blood Pressure 150/86 [Left Arm] Blood Pressure [Right Arm] O2 Sat by Pulse 96 96 Oximetry General: Alert, Oriented to Person, Oriented to Place, Oriented to Time, Cooperative, Other (patient does have some confusion even though )x3) HEENT: Atraumatic, PERRLA, EOMI, Mouth Mucous membr. moist/[place], Nose Mucous membr. moist/[place] Neck: Normal Range of Motion Carotids: WNL Thyroid: WNL Lungs: Clear to auscultation, Normal air movement, Speaks full Sentences Cardiovascular: Regular rate, Normal S1, Normal S2, No murmurs Peripheral Edema: 2 plus pitting bilateral Abdomen: Normal bowel sounds, Soft, No tenderness, No hepatospenomegaly, No masses Integumentary: Normal, [place], Warm, Dry Extremities: No clubbing, No cyanosis, No edema, Normal pulses, No tenderness/swelling Neurological: Normal gait, Normal speech, Strength Equal Bilat, Normal tone, Sensation intact, Cranial nerves 3-12 NL, Reflexes 2+ Psych/Mental Status: Mental status NL, Mood NL, Appropriate Affect. No: Intact Judgment - Laboratory Results Laboratory Results: Laboratory Results 09/12/19 09/12/19 05:13 05:13 WBC 5.80 RBC 3.89 L Hgb 12.1 Hct 36.9 MCV 95.0 MCH 31.1 MCHC 32.8 RDW 12.6 Plt Count 164 Neut % (Auto) 72.0 Lymph % (Auto) 15.5 L [place] % (Auto) 8.7 Eos % (Auto) 3.4 Baso % (Auto) 0.4 Neut # (Auto) 4.2 Lymph # (Auto) 0.9 [place] # (Auto) 0.5 Eos # (Auto) 0.2 Baso # (Auto) 0.0 Sodium 143 Potassium 4.1 Chloride 105 Carbon Dioxide 29 Anion Gap 13.1 BUN 27 H Creatinine 0.91 Estimated Creat Clear 52 Est GFR ( Amer) > 60 Est GFR (Non-Af Amer) > 60 Glucose 101 Calcium 9.3 Total Bilirubin 1.1 AST 44 ALT 24 Alkaline Phosphatase 214 H Troponin I < 0.012 L NT-Pro-B Natriuret Pep 2035.2 H Total Protein 7.5 Albumin 4.3 Assessment/Plan - Assessment/Plan (1) Pneumonia Status: Acute Current Visit: Yes Qualifiers: Pneumonia type: due to unspecified organism Laterality: bilateral Lung location: unspecified part of lung Qualified Code(s): J18.9 - Pneumonia, unspecified organism Plan: Patient will be started on Levaquin. Patient will be started on Duoneb treatments. . Patient will be monitored for oxygen requirement. (2) Atrial fibrillation Status: Chronic Current Visit: No Qualifiers: Atrial fibrillation type: longstanding persistent Qualified Code(s): I48.11 - Longstanding persistent atrial fibrillation Assessment: rate controlled at this time. On Eliquis. (3) Dementia Status: Chronic Current Visit: No Qualifiers: Dementia type: Alzheimer's disease Plan: Continue home meds. It may be time for patient to be placed in a different living environment. I will discuss this her family. Patient is resistant to living anywhere but at home by herself. VTE Assessment - RISK FACTOR SCORE VTE RISK FACTOR SCORES: AGE OVER 60 YEARS, ACUTE INFECTION OTHER THEN SEPSIS - RISK VTE MODERATE RISK: SCORE OF 2 (RISK PROXIMAL DVT 2-4%) PROPHYAXIS NEEDED
[2019-09-12] MEDS ORDERED: RIVAROXABAN 10 MG TABLET PO SCH (18:00)
[2019-09-13] MEDS: IPRATROPIUM/ALBUTEROL SULFATE 3 ML AMPUL.NEB NEB SCH ×4 (02:34→13:19)
--- NOTE | 2019-09-13 07:40 | Diagnostic Imaging Report ---
PATIENT MR#: [id number] PATIENT PATIENT NAME: HELGA BHAT DATE OF : 1930 REFERRING PHYSICIAN: Víctor Xie EXAM DATE: 09/13/2019 ACCESSION NUMBER: [id number] EXAM DESCRIPTION: CHEST 2VIEW 2 views of the chest History: Pneumonia SWELLING OF RLE (Pt comments) Comparison: September 12, 2019 Stable cardiomediastinal silhouette. Tortuous and atherosclerotic aorta. Pulmonary vascular congestio n. Interstitial prominence is again noted. Bibasilar atelectasis. Left greater than right pleural effusions with unde rlying airspace disease. Thoracic spine degenerative changes Impression: Bilateral, left greater than and small pleural effusions with underlying airspace disease is stable. Pulmonary vascular congestion/ edema. Tortuous atherosclerotic aorta. Read by: Dr. Nelida Galindo Transcribed by: Transcribed Date: Electronically signed by: Dr. Nelida Galindo Date signed: 09/13/2019 7:39:50 AM
[2019-09-13] MEDS ORDERED: FUROSEMIDE 20 MG/2 ML VIAL IVP SCH (09:00)
[2019-09-13 09:19] VITALS: BP 140/83
[2019-09-13] MEDS: amLODIPine BESYLATE 5 MG TABLET PO SCH (09:22)
[2019-09-13] MEDS: PROPRANOLOL HCL 20 MG TABLET PO SCH (09:22)
[2019-09-13] MEDS: MEMANTINE HCL 10 MG TABLET PO SCH (09:22)
[2019-09-13] MEDS: SODIUM CHLORIDE 0.9 % (FLUSH) 10 ML DISP.SYRIN IV SCH (09:26)
[2019-09-13] MEDS: BUDESONIDE 0.5MG/2ML AMPUL.NEB NEB SCH (09:32)
--- NOTE | 2019-09-13 10:34 | Inpatient Progress Note ---
Subjective - Required Recertification Statement I anticipate X number of days because-include discharge plan: 0 - Review of Systems Events since last encounter: Patient seem to be doing much better today. Patient is on room air setting 95 to 100%. Objective - Exam Vitals and I&O: Vital Signs Temp 98.7 F 09/13/19 09:16 Pulse 80 09/13/19 10:00 Resp 20 09/13/19 10:00 BP 140/83 09/13/19 09:16 Pulse Ox 98 09/13/19 10:00 Intake & Output 09/12/19 09/12/19 09/13/19 11:59 23:59 11:59 Intake Total 360 123 340 Output Total 1600 Balance 360 -1477 340 Weight 67.132 kg Intake: IV 3 100 Right Antecubital 3 100 Oral 360 120 240 Output: Urine 1600 Other: Voiding Method Toilet Toilet Toilet # Voids 4 # Bowel Movements 0 0 - Results Results: Laboratory Results WBC 5.80 K/ul (4.00-12.00) 09/12/19 05:13 RBC 3.89 M/ul (3.90-5.20) L 09/12/19 05:13 Hgb 12.1 g/dL (11.5-16.0) 09/12/19 05:13 Hct 36.9 % (34.5-46.5) 09/12/19 05:13 MCV 95.0 fl (80.0-100.0) 09/12/19 05:13 MCH 31.1 pg (28.0-34.0) 09/12/19 05:13 MCHC 32.8 g/dL (30.0-36.0) 09/12/19 05:13 RDW 12.6 % (11.3-14.3) 09/12/19 05:13 Plt Count 164 K/mm3 (130-400) 09/12/19 05:13 Neut % (Auto) 72.0 % (39.0-79.0) 09/12/19 05:13 Lymph % (Auto) 15.5 % (16.0-50.0) L 09/12/19 05:13 [place] % (Auto) 8.7 % (0.0-11.0) 09/12/19 05:13 Eos % (Auto) 3.4 % (0.0-6.8) 09/12/19 05:13 Baso % (Auto) 0.4 % (0.0-1.5) 09/12/19 05:13 Neut # (Auto) 4.2 # k/uL (1.4-7.7) 09/12/19 05:13 Lymph # (Auto) 0.9 # k/uL (0.6-4.0) 09/12/19 05:13 [place] # (Auto) 0.5 # k/uL (0.0-0.9) 09/12/19 05:13 Eos # (Auto) 0.2 # k/uL (0.0-0.6) 09/12/19 05:13 Baso # (Auto) 0.0 # k/uL (0.0-0.5) 09/12/19 05:13 Sodium 143 mmol/L (137-145) 09/12/19 05:13 Potassium 4.1 mmol/L (3.5-5.1) 09/12/19 05:13 Chloride 105 mmol/L (98-107) 09/12/19 05:13 Carbon Dioxide 29 mmol/L (22-30) 09/12/19 05:13 Anion Gap 13.1 09/12/19 05:13 BUN 27 mg/dL (7-17) H 09/12/19 05:13 Creatinine 0.91 mg/dL (0.52-1.04) 09/12/19 05:13 Estimated Creat Clear 52 09/12/19 05:13 Est GFR ( Amer) > 60 (60-) 09/12/19 05:13 Est GFR (Non-Af Amer) > 60 (60-) 09/12/19 05:13 Glucose 101 mg/dL (74-106) 09/12/19 05:13 Calcium 9.3 mg/dL (8.4-10.2) 09/12/19 05:13 Total Bilirubin 1.1 mg/dL (0.2-1.3) 09/12/19 05:13 AST 44 U/L (15-46) 09/12/19 05:13 ALT 24 U/L (4-35) 09/12/19 05:13 Alkaline Phosphatase 214 U/L (38-126) H 09/12/19 05:13 Troponin I < 0.012 ng/mL (0.012-0.034) L 09/12/19 05:13 NT-Pro-B Natriuret Pep 2035.2 pg/mL (15.0-450.0) H 09/12/19 05:13 Total Protein 7.5 g/dL (6.3-8.2) 09/12/19 05:13 Albumin 4.3 g/dL (3.5-5.0) 09/12/19 05:13 Assessment/Plan - Assessment/Plan (1) Pneumonia Status: Acute Qualifiers: Pneumonia type: due to unspecified organism Laterality: bilateral Lung location: unspecified part of lung Qualified Code(s): J18.9 - Pneumonia, unspecified organism (2) Atrial fibrillation Status: Chronic Qualifiers: Atrial fibrillation type: longstanding persistent Qualified Code(s): I48.11 - Longstanding persistent atrial fibrillation (3) Dementia Status: Chronic Qualifiers: Dementia type: Alzheimer's disease
--- NOTE | 2019-09-21 20:10 | Discharge Summary ---
Discharge Summary - Discharge [facility] Admission Date: 09/12/19 Discharge Date: 09/13/19 Discharge To: Home History of Present Illness: 89-year-old white female who is really admitted the hospital for its pneumonia. Patient was treated with azithromycin and Rocephin. Patient with him. At the time to discharge and did well until several days prior to admission. At that time patient started having some increasing shortness of breath dyspnea once again. Patient stated she is had a nonproductive cough. Patient denied any fever or chills. Patient subsequently came back to the ED for evaluation. In the emergency room patient was found to have a pulse ox of 87% on room air. Patient chest x-ray showed some continuing infiltrate and she was subsequently admitted to the hospital for further care and evaluation. Patient has been having some memory/dementia issues. Patient states that when she woke up on the day of admission she that there is a man standing over her. Initially she thought it was her who is been for a number of years. Patient has been having some episodes of mental confusion sometimes associated with some hallucinations. Patient has been started on Namenda for her memory issues. The family has some questions about whether the appropriate for the patient to remain at home living by herself. There is some questions about whether the patient and her medications appropriately. Condition at Discharge: Stable Home Medications: Ambulatory Orders Medication Instructions Recorded Citalopram Hydrobromide 10 mg PO QDAY 08/21/19 [Citalopram HBr] Memantine HCl 20 mg PO QDAY 08/21/19 Propranolol HCl [Propranolol HCl 160 mg PO BID 08/21/19 ER] Budesonide [Pulmicort] 0.5 mg NEB BID ampul.neb 08/23/19 Ipratropium/Albuterol Sulfate 3 ml NEB Q4 ampul.neb 09/12/19 [Duoneb] LevoFLOXacin [Levaquin] 500 mg PO DAILY #7 tablet 09/13/19 Consultations this Visit: None Allergies/Adverse Reactions: Allergies Allergy/AdvReac Type Severity Reaction Status Date / Time Sulfa (Sulfonamide Allergy Verified 09/12/19 04:57 Antibiotics) Discharge Summary: Patient was admitted and started on antibiotic therapy of Azithromycin and Rocephin. Patient was started on HFN treatment. Patient needed some some supplemental oxygen for a short period of time. Her breathing did improve. She did continue to have some periods of confusion. Due to the loss of the capability of doing labs patient was advised that she wouldneed to be discharged home or transfered. Patient and her family felt that they could manage at home and was dischaged home in stable condition. - Final Diagnosis (1) Pneumonia Problems: improved (2) Atrial fibrillation Problems: stable (3) Dementia Problems: stable
== END 2019-09-13 12:30 | disposition home or self-care (01) | DRG 194 ==
LOC: ED 04:29 → SOUTH 06:19
PROVIDERS: ADMIT Family Medicine; ATTEND Family Medicine
DX: J18.9 Pneumonia, unspecified organism (principal); I48.11 Longstanding persistent atrial fibrillation; G30.9 Alzheimer's disease, unspecified; F02.80 Dementia in other diseases classified elsewhere, unspecified severity, without behavioral disturbance, psychotic disturbance, mood disturbance, and anxiety; I11.0 Hypertensive heart disease with heart failure; I50.9 Heart failure, unspecified; Z79.51 Long term (current) use of inhaled steroids; Z79.899 Other long term (current) drug therapy; Z88.2 Allergy status to sulfonamides; Z90.710 Acquired absence of both cervix and uterus; Z79.01 Long term (current) use of anticoagulants
CPT/HCPCS: 80053; 83880; 84484; 85025; 93005; 94640; 96361; 96365; 96374; 99238; 99282; 99284; J1940; J1956; J7626; J7030; S1016